=== PATIENT | female | born 2000 | race Hispanic/Latino ===

== ENCOUNTER 2025-03-14 02:03 | Emergency (ER) | payer MEDICAID, SELFPAY ==
[2025-03-14] MEDS ORDERED: Amoxicillin/Potassium Clav 875 MG TAB ONE (02:47)
[2025-03-14] MEDS ORDERED: Ketorolac Tromethamine 30 MG (1 mL) VIAL ONE (02:47)
[2025-03-14] MEDS ORDERED: Acetaminophen/Codeine 30-300mg Tablet ONE (02:47)
== END 2025-03-14 02:55 | disposition home or self-care (01) ==
LOC: ERS 02:03
DX: K08.89 Other specified disorders of teeth and supporting structures (principal); E10.9 Type 1 diabetes mellitus without complications
CPT/HCPCS: 96372; 99282; J1885